=== PATIENT | male | born 1985 | race Caucasian/White ===

== ENCOUNTER 2019-12-17 14:27 | Emergency (ER) | payer BC ==
[~2019-12-17] VITALS: Ht 160 cm; Wt 96.3 kg
[2019-12-17 16:40] VITALS: BP 164/100
[2019-12-17] MEDS ORDERED: METH4TAB2 PO (17:03)
--- NOTE | 2019-12-17 17:03 | PHYS DOC ---
Adult General Chief Complaint Chief Complaint: SKIN RASH/ABSCESS [facility] Patient is a 34 year old male who presents with rash that has been ongoing for several days. The rash is body wide and is worse when he wakes up. He describes the rash as itchy. He has been using hydrocortisone cream which has helped. He also has been using benadryl which is helping. Denies any other symptoms. Last had Benadryl at 1300. Complete ROS were reviewed and found to be within normal limits, except as documented in the HPI Physical Exam Physical Exam Constitutional: Well developed, well nourished, no acute distress, non-toxic appearance. [] HENT: Normocephalic, atraumatic, bilateral external ears normal, oropharynx moist, no oral exudates, nose normal. [] Eyes: PERRLA, EOMI, conjunctiva normal, no discharge. [] Neck: Normal range of motion, no tenderness, supple, no stridor. [] Cardiovascular:Heart rate regular rhythm, no murmur [] Lungs & Thorax: Bilateral breath sounds clear to auscultation [] Skin: maculopapular rash diffuse over body. Back: No tenderness, no CVA tenderness. [] Extremities: No tenderness, no cyanosis, no clubbing, ROM intact, no edema. [] Neurologic: Alert and oriented X 3, normal motor function, normal sensory function, no focal deficits noted. [] Psychologic: Affect normal, judgement normal, mood normal. [] EKG EKG [] Radiology/Procedures Radiology/Procedures [] Course & Med Decision Making Course & Med Decision Making Pertinent Labs and Imaging studies reviewed. (See chart for details) Appears to be having an allergic reaction to unknown substance. Will place on Me drol dose pack and told to continue Benadryl and Hydrocortisone cream. Dragon Disclaimer Dragon Disclaimer This electronic medical record was generated, in whole or in part, using a voice recognition dictation system. Departure Departure Impression: Primary Impression: Rash due to allergy Disposition: 01 HOME, SELF-CARE Condition: STABLE Referrals: NO PCP (PCP) Patient Instructions: Rash Additional Instructions: Thank you for visiting [facility]. We appreciate you trusting us with your care. If any additional problems come up don't hesitate to return to visit us. Please follow up with your primary care provider so they can plan additional care if needed and know about the problem that you had. If symptoms worsen come back to the Emergency Department. Any concerning symptoms that start such as chest pain, shortness of air, weakness or numbness on one side of the body, running high fevers or any other concerning symptoms return to the ER. Scripts Methylprednisolone (MEDROL) 4 Mg Tab.ds.pk 1 PKG PO UD, #1 PKG Prov: ANILA THACKER APRN 12/17/19 ANILA THACKER APRN Dec 17, 2019 17:03
== END 2019-12-17 17:16 | disposition home or self-care (01) ==
LOC: ER 14:27
DX: T78.49XA Other allergy, initial encounter (principal); R21 Rash and other nonspecific skin eruption; X58.XXXA Exposure to other specified factors, initial encounter
CPT/HCPCS: 99283